=== PATIENT | female | born 1975 | race Hispanic/Latino ===

== ENCOUNTER 2017-08-15 20:44 | Emergency (ER) | payer MEDICAID ==
[2017-08-15 21:30] LABS: BASOPHILS % (AUTO) 0.8 % (0.0-5.0); EOSINOPHILS % (AUTO) 1.4 % (0.0-8.0); HEMATOCRIT 35.2 % (36-48); LYMPHOCYTES % (AUTO) 16.5 % (21.0-51.0); MEAN CORPUSCULAR HEMOGLOBIN 27.9 pg (27.0-33.0); MONOCYTES % (AUTO) 6.2 % (3.0-13.0); NEUTROPHILS % (AUTO) 75.1 % (40.0-77.0); PLATELET COUNT (AUTO) 372 K/uL (130-400); RED CELL DISTRIBUTION WIDTH 15.7 % (11.0-15.5); WHITE BLOOD COUNT (AUTO) 6.4 K/uL (4.8-10.8)
[2017-08-15 21:41] LABS: CREATININE 0.7 mg/dL (0.5-1.5)
[2017-08-15 21:50] LABS: ALBUMIN 3.3 g/dL (3.5-5.0); BILIRUBIN,TOTAL 0.4 mg/dL (0.2-1.0); TOTAL PROTEIN, SERUM 7.8 g/dL (6.0-8.3)
[2017-08-15 21:56] LABS: APPEARANCE,URINE Clear (CLEAR); BILIRUBIN,URINE Negative (NEGATIVE); COLOR,URINE Yellow (YELLOW); GLUCOSE, URINE (UA) Negative (NEGATIVE); KETONES,URINE Negative (NEGATIVE); LEUKOCYTE ESTERASE ,URINE Negative (NEGATIVE); NITRATE,URINE Negative (NEGATIVE); OCCULT BLOOD,URINE Negative (NEGATIVE); PROTEIN,URINE Negative (NEGATIVE); UROBILINOGEN,URINE 0.2 mg/dL (0.2-1.0)
[2017-08-15 22:04] LABS: AMPHET/METH SCREEN,URINE NEGATIVE (NEGATIVE); BARBITURATE SCREEN, URINE NEGATIVE (NEGATIVE); BENZODIAZEPINES SCREEN,URINE NEGATIVE (NEGATIVE); CANNABINOID SCREEN,URINE NEGATIVE (NEGATIVE); COCAINE SCREEN,URINE NEGATIVE (NEGATIVE); OPIATE SCREEN,URINE POSITIVE (NEGATIVE); PHENCYCLIDINE SCREEN,URINE NEGATIVE (NEGATIVE)
[2017-08-15] MEDS ORDERED: ACETAMINOPHEN 325 MG TAB ONE (22:14)
[2017-08-15] MEDS ORDERED: FAMOTIDINE/PF 20 MG/2 ML VIAL IV ONE (22:19)
[2017-08-15] MEDS ORDERED: DiphenhydrAMINE HCL 50 MG/ML VIAL ONE (22:19)
[2017-08-15] MEDS ORDERED: LIDOCAINE HCL 2% VISCOUS 15 ML UDCUP ONE (23:53)
[2017-08-15] MEDS ORDERED: MAG HYDROX/AL HYDROX/SIMETH ES 30 ML SUSP UDCUP ONE (23:54)
== END 2017-08-16 01:09 | disposition home or self-care (01) ==
LOC: EDH 20:44
DX: K29.71 Gastritis, unspecified, with bleeding (principal); R51 Headache; I10 Essential (primary) hypertension; Z98.51 Tubal ligation status
CPT/HCPCS: 36415; 74176; 80053; 80305; 81003; 81025; 82150; 82270; 83690; 85025; 86677; 87804 ×2; 93005; 96374; 96375; 99285; J1200; J3490

== ENCOUNTER 2017-12-28 13:50 | Emergency (ER) | payer MEDICAID, OTHER ==
[2017-12-28] MEDS ORDERED: METHYLPREDNISOLONE SOD SUCC 125MG/2ML VIAL ONE (14:33)
[2017-12-28 14:37] LABS: APPEARANCE,URINE Clear (CLEAR); BILIRUBIN,URINE Negative (NEGATIVE); COLOR,URINE Dark Yellow (YELLOW); GLUCOSE, URINE (UA) Negative (NEGATIVE); KETONES,URINE Trace mg/dL (NEGATIVE); LEUKOCYTE ESTERASE ,URINE Negative (NEGATIVE); NITRATE,URINE Negative (NEGATIVE); OCCULT BLOOD,URINE Negative (NEGATIVE); PROTEIN,URINE POS 1+ (NEGATIVE)
[2017-12-28 14:38] LABS: HCG,QUAL RESULT NEGATIVE (NEGATIVE)
[2017-12-28 14:38] LABS: BASOPHILS % (AUTO) 0.8 % (0.0-5.0); EOSINOPHILS % (AUTO) 2.9 % (0.0-8.0); HEMATOCRIT 36.1 % (36-48); LYMPHOCYTES % (AUTO) 11.2 % (21.0-51.0); MEAN CORPUSCULAR HEMOGLOBIN 26.6 pg (27.0-33.0); MEAN CORPUSCULAR HGB CONC 33.6 g/dL (32.0-36.0); MEAN CORPUSCULAR VOLUME 79.1 fL (79-99); MONOCYTES % (AUTO) 7.8 % (3.0-13.0); NEUTROPHILS % (AUTO) 77.3 % (40.0-77.0); NUCLEATED RED BLOOD CELLS 0.1 % (0.0-0.19); PLATELET COUNT (AUTO) 397 K/uL (130-400); RED BLOOD CELL COUNT(AUTO) 4.57 MIL/uL (4.00-5.50); RED CELL DISTRIBUTION WIDTH 16.1 % (11.0-15.5); WHITE BLOOD COUNT (AUTO) 7.1 K/uL (4.8-10.8)
[2017-12-28] MEDS ORDERED: IPRATROPIUM/ALBUTEROL SULFATE 3 ML SOLUTION IH ONE (14:38)
[2017-12-28 14:52] LABS: CREATININE 0.7 mg/dL (0.5-1.5); POTASSIUM 3.8 mmol/L (3.5-5.1)
[2017-12-28 14:56] LABS: ALBUMIN 3.1 g/dL (3.5-5.0); BILIRUBIN,DIRECT 0.1 mg/dL (0.0-0.3); BILIRUBIN,TOTAL 0.5 mg/dL (0.2-1.0)
[2017-12-28 15:14] LABS: BACTERIA,URINE Few /HPF (None Seen); RBC,URINE 0-1 /HPF (0-1)
[2017-12-28 15:15] LABS: MUCUS,URINE Few LPF (None Seen); SQUAMOUS EPITHELIAL CELL,UR Few /HPF (0-2)
== END 2017-12-28 15:43 | disposition home or self-care (01) ==
LOC: EDH 13:50
DX: J16.8 Pneumonia due to other specified infectious organisms (principal); E66.9 Obesity, unspecified; Z68.43 Body mass index [BMI] 50.0-59.9, adult; Z91.013 Allergy to seafood; Z91.018 Allergy to other foods
CPT/HCPCS: 36415; 71046; 80048; 80076; 81001; 81025; 85025; 93005; 94640; 96374; 99285; J2930

== ENCOUNTER 2022-08-15 15:00 | Emergency (ER) | payer OTHER ==
[~2022-08-15] VITALS: Ht 162.6 cm; Wt 153.3 kg
[~2022-08-15 15:00] MED LIST: ACET-2079 PO
[2022-08-15 15:39] LABS: APPEARANCE,URINE CLEAR (CLEAR); BILIRUBIN,URINE NEGATIVE (NEGATIVE); COLOR,URINE YELLOW (YELLOW); GLUCOSE, URINE (UA) NEGATIVE (NEGATIVE); KETONES,URINE NEGATIVE (NEGATIVE); LEUKOCYTE ESTERASE ,URINE TRACE Leu/uL (NEGATIVE); NITRATE,URINE NEGATIVE (NEGATIVE); OCCULT BLOOD,URINE TRACE-LYSED (NEGATIVE); PROTEIN,URINE NEGATIVE (NEGATIVE); UROBILINOGEN,URINE 0.2 mg/dL (0.2-1.0)
[2022-08-15 15:48] LABS: BACTERIA,URINE Rare /HPF (None Seen); WBC,URINE 0-1 /HPF (0-1)
[2022-08-15 15:49] LABS: MUCUS,URINE Rare LPF (None Seen); SQUAMOUS EPITHELIAL CELL,UR Rare /HPF (0-2)
[2022-08-15 15:55] LABS: BASOPHILS % (AUTO) 0.6 % (0.0-5.0); EOSINOPHILS % (AUTO) 0.9 % (0.0-8.0); HEMATOCRIT 33.4 % (36-48); LYMPHOCYTES % (AUTO) 21.5 % (21.0-51.0); MEAN CORPUSCULAR HEMOGLOBIN 25.2 pg (27.0-33.0); MEAN CORPUSCULAR VOLUME 78.6 fL (79-99); MONOCYTES % (AUTO) 6.2 % (3.0-13.0); NEUTROPHILS % (AUTO) 70.5 % (40.0-77.0); PLATELET COUNT (AUTO) 354 K/uL (130-400); RED BLOOD CELL COUNT(AUTO) 4.25 MIL/uL (4.00-5.50); RED CELL DISTRIBUTION WIDTH 16.8 % (11.0-15.5); WHITE BLOOD COUNT (AUTO) 6.5 K/uL (4.8-10.8)
[2022-08-15 16:05] LABS: CREATININE 0.6 mg/dL (0.5-1.5); POTASSIUM 3.4 mmol/L (3.5-5.1)
[2022-08-15 16:10] LABS: ALBUMIN 3.2 g/dL (3.5-5.0); TOTAL PROTEIN, SERUM 7.6 g/dL (6.0-8.3)
[2022-08-15] MEDS ORDERED: LIDOCAINE HCL 2% VISCOUS 15 ML UDCUP PO ONE (18:00)
[2022-08-15] MEDS ORDERED: MAG/ALUM/SIMETH 30 ML UDCUP PO ONE (18:00)
[2022-08-15] MEDS ORDERED: POTASSIUM BICARB/CIT AC 25 MEQ TABLET.EFF PO ONE (18:00)
[2022-08-15] MEDS ORDERED: CEPH500B PO (18:15)
[2022-08-15] MEDS ORDERED: PANT40TA55 PO (18:15)
[2022-08-15 18:25] VITALS: BP 144/79
== END 2022-08-15 18:35 | disposition home or self-care (01) ==
LOC: EDH 15:00
DX: N39.0 Urinary tract infection, site not specified (principal); K21.9 Gastro-esophageal reflux disease without esophagitis; F41.9 Anxiety disorder, unspecified; E11.9 Type 2 diabetes mellitus without complications; E78.00 Pure hypercholesterolemia, unspecified; I10 Essential (primary) hypertension; Z79.1 Long term (current) use of non-steroidal anti-inflammatories (NSAID); Z88.8 Allergy status to other drugs, medicaments and biological substances
CPT/HCPCS: 36415; 71045; 80053; 81001; 83690; 84484; 85025; 93005

== ENCOUNTER 2023-02-06 09:02 | Emergency (ER) | payer OTHER ==
[~2023-02-06] VITALS: Ht 162.6 cm; Wt 152.0 kg
[~2023-02-06 09:02] MED LIST changes: +CEPH500B PO; +PANT40TA55 PO
[2023-02-06 09:51] LABS: BASOPHILS % (AUTO) 0.7 % (0.0-5.0); EOSINOPHILS % (AUTO) 1.1 % (0.0-8.0); HEMATOCRIT 34.9 % (36-48); LYMPHOCYTES % (AUTO) 18.9 % (21.0-51.0); MEAN CORPUSCULAR HEMOGLOBIN 24.3 pg (27.0-33.0); MEAN CORPUSCULAR HGB CONC 31.5 g/dL (32.0-36.0); MONOCYTES % (AUTO) 5.6 % (3.0-13.0); NEUTROPHILS % (AUTO) 73.4 % (40.0-77.0); PLATELET COUNT (AUTO) 410 K/uL (130-400); RED BLOOD CELL COUNT(AUTO) 4.53 MIL/uL (4.00-5.50); RED CELL DISTRIBUTION WIDTH 16.3 % (11.0-15.5); WHITE BLOOD COUNT (AUTO) 7.3 K/uL (4.8-10.8)
[2023-02-06 10:01] LABS: CREATININE 0.6 mg/dL (0.5-1.5)
[2023-02-06 10:06] LABS: ALBUMIN 3.5 g/dL (3.5-5.0); MAGNESIUM 1.5 mg/dL (1.80-2.40); TOTAL PROTEIN, SERUM 8.1 g/dL (6.0-8.3)
[2023-02-06 10:22] LABS: B-TYPE NATRIURETIC PEPTIDE 6 pg/mL (0-100)
[2023-02-06 10:36] LABS: APPEARANCE,URINE CLEAR (CLEAR); BILIRUBIN,URINE NEGATIVE (NEGATIVE); COLOR,URINE LIGHT-YELLOW (YELLOW); GLUCOSE, URINE (UA) NEGATIVE (NEGATIVE); KETONES,URINE NEGATIVE (NEGATIVE); LEUKOCYTE ESTERASE ,URINE NEGATIVE Leu/uL (NEGATIVE); NITRATE,URINE NEGATIVE (NEGATIVE); OCCULT BLOOD,URINE MODERATE (NEGATIVE); PH,URINE 5.5 (5.0-8.0); PROTEIN,URINE NEGATIVE (NEGATIVE); UROBILINOGEN,URINE 0.2 mg/dL (0.2-1.0)
[2023-02-06 10:50] LABS: HCG,QUALITATIVE URINE NEGATIVE (NEGATIVE)
[2023-02-06 11:07] LABS: BACTERIA,URINE MOD /HPF (None Seen); MUCUS,URINE RARE LPF (None Seen); SQUAMOUS EPITHELIAL CELL,UR RARE /HPF (0-2); WBC,URINE 0-1 /HPF (0-1)
[2023-02-06] MEDS ORDERED: HYDR-3421 PO (11:27)
[2023-02-06 11:41] VITALS: BP 149/99
== END 2023-02-06 11:47 | disposition home or self-care (01) ==
LOC: EDH 09:02
DX: M94.0 Chondrocostal junction syndrome [Tietze] (principal); F41.9 Anxiety disorder, unspecified; E11.9 Type 2 diabetes mellitus without complications; E78.00 Pure hypercholesterolemia, unspecified; I10 Essential (primary) hypertension; J45.909 Unspecified asthma, uncomplicated; Z20.822 Contact with and (suspected) exposure to COVID-19
CPT/HCPCS: 99285; 71045; 87635; 83735; 84484; 80053; 83880; 85025; 87804 ×2; 81001; 81025; 36415; 93005; C9803

== ENCOUNTER 2025-01-23 15:51 | Emergency (ER) | payer BC, OTHER ==
[~2025-01-23] VITALS: Ht 162.6 cm; Wt 152.9 kg
[~2025-01-23 15:51] MED LIST changes: +HYDR-3421 PO
[2025-01-23 16:18] LABS: BASOPHILS # (AUTO) 0.03 K/uL (0.00-0.20); BASOPHILS % (AUTO) 0.6 % (0.0-5.0); EOSINOPHILS # (AUTO) 0.08 K/uL (0.00-0.70); EOSINOPHILS % (AUTO) 1.5 % (0.0-8.0); HEMATOCRIT 34.4 % (36-48); IMMATURE GRANULOCYTE ABSOLUTE 0.03 K/uL (0-1); LYMPHOCYTES # (AUTO) 1.2 K/uL (1.0-4.8); MEAN CORPUSCULAR HGB CONC 32.8 g/dL (32.0-36.0); MEAN CORPUSCULAR VOLUME 82.3 fL (79-99); MONOCYTES # (AUTO) 0.4 K/uL (0.1-1.0); MONOCYTES % (AUTO) 7.9 % (3.0-13.0); NEUTROPHILS # (AUTO) 3.4 K/uL (1.8-7.7); NEUTROPHILS % (AUTO) 65.4 % (40.0-77.0); PLATELET COUNT (AUTO) 372 K/uL (130-400); RED BLOOD CELL COUNT(AUTO) 4.18 MIL/uL (4.00-5.50); RED CELL DISTRIBUTION WIDTH 14.9 % (11.0-15.5); WHITE BLOOD COUNT (AUTO) 5.2 K/uL (4.8-10.8)
[2025-01-23 16:26] LABS: CREATININE 0.5 mg/dL (0.5-1.0); POTASSIUM 3.7 mmol/L (3.5-5.1)
[2025-01-23 16:35] LABS: MAGNESIUM 1.3 mg/dL (1.80-2.40)
--- NOTE | 2025-01-23 16:52 | EKG ---
[facility] Test Date: 2025-01-23 Test Time: 16:48:53 Pat Name: JASON GARDNER Department: ED Room: Gender: F Mail Service Coordinator: [id number] : 1975 Requested By: YAMILE TAPIA Order Number: [id number] Reading MD: Liam Park Measurements Intervals [place] Rate: 86 P: 33 CA: 184 QRS: 40 QRSD: 92 T: 49 QT: 372 QTc: 446 Interpretive Statements Sinus rhythm Low voltage, precordial leads Compared to ECG 02/06/2023 09:31:40 Low QRS voltage now present Electronically Signed On 01-24-2025 11:51:25 CDT by Liam Park Please click the below link to view image of tracing.
[2025-01-23 17:33] LABS: APPEARANCE,URINE CLEAR (CLEAR); BILIRUBIN,URINE NEGATIVE (NEGATIVE); COLOR,URINE LIGHT-YELLOW (YELLOW); GLUCOSE, URINE (UA) NEGATIVE (NEGATIVE); KETONES,URINE NEGATIVE (NEGATIVE); LEUKOCYTE ESTERASE ,URINE NEGATIVE Leu/uL (NEGATIVE); NITRATE,URINE NEGATIVE (NEGATIVE); OCCULT BLOOD,URINE SMALL (NEGATIVE); PH,URINE 5.5 (5.0-8.0); PROTEIN,URINE NEGATIVE (NEGATIVE); UROBILINOGEN,URINE 0.2 mg/dL (0.2-1.0)
[2025-01-23 17:34] LABS: ADD UA MICROSCOPIC YES
[2025-01-23 17:37] LABS: MUCUS,URINE RARE LPF (None Seen); RBC,URINE 0-1 /HPF (0-1); SQUAMOUS EPITHELIAL CELL,UR FEW /HPF (0-2)
--- NOTE | 2025-01-23 18:02 | ERN ---
General Chief Complaint: Chest Pain Stated Complaint: CANT TALK HEADACHE Time Seen by MD: 15:52 Source: patient History of Present Illness Initial Comments PATIENT IS A 49-YEAR-OLD FEMALE COMING IN WITH MULTIPLE COMPLAINTS. PER PATIENT SHE HAD AN EPISODE THAT SHE COULD NOT SPEAK AND FELT IF HER RIGHT FACE WAS TINGLING. SHE ALSO STATES THAT SHE HAS A RIGHT ARM TINGLING WELL. SHE STATES HE WAS EVALUATED ANOTHER HOSPITAL FOR SAME REASON IN HIS HERE DUE TO ONGOING SENSATION. UPON EVALUATION IN TRIAGE SHE STATES THAT HER SYMPTOMS HAVE SUBSIDED. Allergies: Coded Allergies: ketorolac (Unverified Allergy, Mild, 07/29/22) C/O DIFFICULTY SWALLOWING WITHOUT NOTABLE SWELLING OR DISTRESS. No Known Drug Allergies (Unverified Allergy, Unknown, 07/29/22) Home Meds Active Scripts Hydroxyzine HCl (Hydroxyzine HCl) 25 Mg Tablet, 25 MG PO TID for 3 Days, #9 TAB Prov:GIL NUNES V METAL HANGING SUPERVISOR 02/06/23 Pantoprazole Sodium (Protonix) 40 Mg Ectab, 40 MG PO DAILY for 30 Days, #30 TAB.EC Prov:YAMILE TAPIA MD 08/15/22 Cephalexin Monohydrate (Keflex) 500 Mg Cap, 500 MG PO TID for 7 Days, #21 CAP Prov:YAMILE TAPIA MD 08/15/22 Acetaminophen with Codeine (Acetaminophen-Cod #3 Tablet) 1 Each Tablet, 1-2 TAB PO Q6H PRN for SEVERE PAIN (7-10), #12 TAB 0 Refills Prov:DEVI ALLEN MD 07/29/22 Past Medical History Past Medical History: Anxiety, Arthritis, Asthma, Bipolar, Depression, Diabetes-Type II, High Cholesterol, Hypertension Medical History Other: PTSD Past Surgical History: Other Surgical History Other: RT KNEE SURGERY, "TUBES TIED" Social History Social History: Negative, Lives with family, Other Female( History) LMP: December 21, 2024 ROS Dictation CONSTITUTIONAL: NO CHILLS, NO FEVER, NO WEAKNESS, NO DIAPHORESIS, NO MALAISE. HEAD/FACE: NO SIGNS OF TRAUMA. EENT: NO EYE PAIN, NO BLURRED VISION, NO TEARING, NO DOUBLE VISION, NO EAR PAIN, NO EAR DISCHARGE, NO NOSE PAIN, NO NASAL CONGESTION, NO THROAT PAIN, NO THROAT SWELLING, NO MOUTH PAIN. RESPIRATORY: NO COUGH, NO ORTHOPNEA, NO SOB, NO STRIDOR, NO WHEEZING. CARDIOVASCULAR: NO CHEST PAIN, NO EDEMA, NO PALPITATIONS, NO SYNCOPE. GASTROINTESTINAL/ABDOMINAL: NO ABDOMINAL PAIN, NO CONSTIPATION, NO DIARRHEA, NO NAUSEA, NO VOMITING. GENITOURINARY: NO ABNORMAL DISCHARGE, NO DYSURIA, NO FREQUENT URINATION, NO HEMATURIA. NO COMPLAINTS OF PAIN IN THE GENITALS. MUSCULOSKELETAL: NO BACK PAIN, NO GOUT, NO JOINT PAIN, NO JOINT SWELLING, NO MUSCLE PAIN, NO MUSCLE STIFFNESS, NO NECK PAIN. INTEGUMENTARY: NO CHANGE IN COLOR, NO CHANGE IN HAIR/NAILS, NO DRYNESS, NO LESION, NO LUMPS, NO RASH. NEUROLOGICAL/PSYCH: NO ANXIETY, NOT DEPRESSED, NO EMOTIONAL PROBLEM, NO HEADACHE, NO NUMBNESS, NO PRE-EXISTING DEFICIT, NO HISTORY OF SEIZURES, NO TREMORS, NO WEAKNESS. HEMATOLOGIC/LYMPHATIC: NOT ANEMIC, NO HISTORY OF BLOOD CLOTS, NO APPARENT BLEEDING, NO BRUISING, GLANDS NOT SWOLLEN. ALL SYSTEMS NEGATIVE, EXCEPT NOTED. Physical Exam Physical Exam Dictation VITAL SIGNS: REVIEWED. GENERAL APPEARANCE: ALERT, ORIENTED X3, NO ACUTE DISTRESS, OBESE. HEAD AND FACE: NON-TRAUMATIC. EYES: PERRL, PINK CONJUNCTIVAS, EYELID NO TRAUMA, ANTERIOR CHAMBER CLEAR. EARS: PINNAS INTACT AND NO SIGNS OF TRAUMA OR ERYTHEMA. EAR CANALS CLEAR AND NO DISCHARGE. TMS NO ERYTHEMA. NOSE: NO DISCHARGE, NO BLEEDING. OROPHARYNX: MOUTH NORMAL, TEETH NO CARIES, TONGUE PINK. PHARYNX CLEAR, NO ERYTHEMA. TONSILS NO EXUDATES, NO ABSCESSES NOTED. MUCOUS MEMBRANE MOIST. NECK: SUPPLE, NON-TENDER, NO THYROMEGALY, NO MASSES, NO JVD, NO BRUITS. BREAST: DEFERRED. CHEST: NO TENDERNESS, NO CREPITUS, NO PARADOXICAL MOVEMENT, NO RETRACTIONS. LUNGS: CLEAR, WELL-VENTILATED, SYMMETRIC, NO RALES, NO WHEEZING, NO RHONCHI, NO STRIDOR, GOOD BREATH SOUNDS BILATERALLY. HEART: REGULAR RATE, REGULAR RHYTHM, NO MURMUR, NO GALLOPS. VASCULAR: NO PERIPHERAL EDEMA. ABDOMEN: SOFT, POSITIVE BOWEL SOUNDS, NONDISTENDED, NO GUARDING, NONTENDER, NO REBOUND, NO MASSES NO HEPATOMEGALY, NO SPLENOMEGALY, NO HART'S SIGN, NO HERNIA S. RECTAL: DEFERRED. GENITAL: DEFERRED. NEUROLOGICAL: NORMAL SPEECH, GROSS MOTOR FUNCTION INTACT, GROSS SENSORY FUNCTION INTACT. MUSCULOSKELETAL: NECK NONTENDER, FULL RANGE OF MOTION, BACK NONTENDER, FULL RANGE OF MOTION. EXTREMITIES: NONTENDER, FULL RANGE OF MOTION. SKIN: COLOR PINK, DRY, NO TURGOR, NO RASH, NO LACERATIONS, NO ABRASIONS, NO CONTUSIONS. LYMPHATICS: DEFERRED. Results Laboratory and Microbiology Lab and Micro Result Laboratory Tests Test 01/23/25 16:10 01/23/25 17:12 White Blood Count 5.2 K/uL (4.8-10.8) Red Blood Count 4.18 MIL/uL (4.00-5.50) Hemoglobin 11.3 g/dL (12.0-16.0) L Hematocrit 34.4 % (36-48) L Mean Corpuscular Volume 82.3 fL (79-99) Mean Corpuscular Hemoglobin 27.0 pg (27.0-33.0) Mean Corpuscular Hemoglobin Concent 32.8 g/dL (32.0-36.0) Red Cell Distribution Width 14.9 % (11.0-15.5) Platelet Count 372 K/uL (130-400) Mean Platelet Volume 9.7 fL (7.5-10.5) Immature Granulocyte % (Auto) 0.6 % (0-1) Neutrophils (%) (Auto) 65.4 % (40.0-77.0) Lymphocytes (%) (Auto) 24.0 % (21.0-51.0) Monocytes (%) (Auto) 7.9 % (3.0-13.0) Eosinophils (%) (Auto) 1.5 % (0.0-8.0) Basophils (%) (Auto) 0.6 % (0.0-5.0) Neutrophils # (Auto) 3.4 K/uL (1.8-7.7) Lymphocytes # (Auto) 1.2 K/uL (1.0-4.8) Monocytes # (Auto) 0.4 K/uL (0.1-1.0) Eosinophils # (Auto) 0.08 K/uL (0.00-0.70) Basophils # (Auto) 0.03 K/uL (0.00-0.20) Absolute Immature Granulocyte (auto 0.03 K/uL (0-1) Nucleated Red Blood Cells 0.0 % (0.0-0.19) Sodium Level 135 mmol/L (136-145) L Potassium Level 3.7 mmol/L (3.5-5.1) Chloride Level 98 mmol/L (101-111) L Carbon Dioxide Level 29 mmol/L (21-32) Blood Urea Nitrogen 8 mg/dL (7-18) Creatinine 0.5 mg/dL (0.5-1.0) Glomerular Filtration Rate Calc 114 mL/min (>90) Random Glucose 204 mg/dL (70-105) H Total Calcium 9.3 mg/dL (8.5-10.1) Magnesium Level 1.30 mg/dL (1.80-2.40) L Total Creatine Kinase 30 U/L (21-232) Troponin I High Sensitivity < 4 ng/L (4-50) L Urine Color LIGHT-YELLOW (YELLOW) Urine Appearance CLEAR (CLEAR) Urine pH 5.5 (5.0-8.0) Urine Specific [place] 1.024 (1.001-1.031) Urine Protein NEGATIVE mg/dL (NEGATIVE) Urine Glucose (UA) NEGATIVE mg/dL (NEGATIVE) Urine Ketones NEGATIVE mg/dL (NEGATIVE) Urine Occult Blood SMALL (NEGATIVE) H Urine Nitrate NEGATIVE (NEGATIVE) Urine Bilirubin NEGATIVE mg/dL (NEGATIVE) Urine Urobilinogen 0.2 mg/dL (0.2-1.0) Urine Leukocyte Esterase NEGATIVE Sean/uL Urine RBC 0-1 /HPF (0-1) Urine WBC 2-5 /HPF (0-1) H Urine Squamous Epithelial Cells FEW /HPF (0-2) Urine Bacteria None /HPF (None Seen) Labs Reviewed?: Yes EKG/XRAY/US/CT/MRI EKG Comment 01/23/2025 TIME 4:48 P.M. VENTRICULAR RATE [address] SIN[address] [place] [address] WAVE ELEVATION OR DEPRESSION MDM MDM: DIFFERENTIAL DIAGNOSIS: WEAKNESS, TIA, CHEST PAIN, RATIONALE: TESTS CONSIDERED AND ORDERED SECONDARY TO SHARED DECISION MAKING INCLUDE: PREVIOUS OUTSIDE RECORDS REVIEWED: OLD ER VISITS. RISK OF COMPLICATION AND/OR MORBIDITY OR MORTALITY OF PATIENT MANAGEMENT: NONE MEDICATIONS-PER MEDICATION RECONCILIATION NEED FOR HOSPITALIZATION: PATIENT DOES NOT MEET CRITERIA FOR HOSPITALIZATION. NEED FOR EMERGENCY MAJOR/MINOR SURGERY: NO THERE ARE NO SOCIAL CONCERNS WITH THIS PATIENT. PRESCRIPTION DRUG MANAGEMENT PRESCRIPTIONS WILL INCLUDE SYMPTOMATIC CARE PATIENT'S PRIOR EXTERNAL MEDICAL RECORDS FROM OTHER ER VISITS WERE REVIEWED BY ME INDICATED. PRIOR TESTING AND RESULTS FROM PREVIOUS VISITS WERE REVIEWED. PRIOR TESTS WERE TAKEN INTO ACCOUNT WITH MEDICAL DECISION MAKING AND RESOURCE UTILIZATION, INDEPENDENT HISTORIAN/HISTORIANS WERE USED TO OBTAIN COMPLETE MEDICAL HISTORY. I INDEPENDENTLY INTERPRETED THE TEST THAT WERE PERFORMED, RESULTS WERE REVIEWED BY ME AND CONSIDERED FINDINGS ON RADIOLOGY IF ORDERED. MEDICAL MANAGEMENT AND EXAMINATION INTERPRETATION DISCUSSIONS WERE HAD BY ME WITH OTHER QUALIFIED HEALTHCARE PROFESSIONALS INDICATED FOR THE PATIENT'S CARE. 01/23/20252125 Spoke to tele neurology who evaluated the patient. Dr. ambrocio who I was on the phone with stated that she felt the patient had an inconsistent exam with any functional neurologic issue. Patient at this time apparently has concerns for anxiety/somatization disorder. Neurology's recommended the patient follow up as an outpatient with a an MRI brain. Discussed with the patient who is willing to do this. Advised her if she had any worsening symptoms to come back to the ER was any other issues ED Course Orders Procedure Category Date Status Time Cbc With Differential LAB 01/23/25 Complete 16:02 Chest 1vw RAD 01/23/25 Taken 16:02 12 Lead Ekg Tracing- EKG 01/23/25 Complete Technical 16:02 Lactated Ringers PHA 01/23/25 Complete 1000ml (Lactated 16:30 Magnesium LAB 01/23/25 Complete 16:02 Creatine Kinase, Total LAB 01/23/25 Complete 16:02 Troponin I High LAB 01/23/25 Complete Sensitivity 16:02 Urinalysis Profile LAB 01/23/25 Complete 16:02 Basic Metabolic Panel LAB 01/23/25 Complete 16:02 Magnesium 2gm Premix PHA 01/23/25 In Process 50ml (Magnesium 2gm 18:30 [place] Prov. Neuro CONPHYSVC 01/23/25 Transmitted Consult 19:44 Current Medications Medications (Trade) Dose Ordered Sig/Mikey Route PRN Reason Start Time Stop Time Status Last Admin Dose Admin Lactated Ringer's 1,000 ml @ 0 mls/hr ONCE ONCE IV 01/23/25 16:30 01/23/25 16:31 DC 01/23/25 18:04 Magnesium Sulfate 50 ml @ 0 mls/hr PROTOCOL IV 01/23/25 18:30 02/22/25 18:29 01/23/25 19:18 Vital Signs Date Time Temp Pulse Resp B/P (MAP) Pulse Ox O2 Delivery O2 Flow Rate FiO2 01/23/25 17:20 97.9 86 19 120/72 96 Room Air* 0 21 01/23/25 15:53 98.2 99 16 148/84 96 Room Air 0 DX & DISP Disposition: Discharge Departure Impression: Primary Impression: TIA (transient ischemic attack) Additional Impression: Anxiety Condition: Stable Additional Instructions: Please follow up with your primary care physician/neurologist for continuance of care. Please follow up to get an MRI brain. If you have worsening neurological dysfunction or symptomatology please come back to emergency department. Referrals: CAMILO ESPAÑA PA-C (PCP) YAMILE TAPIA MD Jan 23, 2025 18:02 MELITON BUENO MD Jan 23, 2025 21:29
[2025-01-23] MEDS: LACTATED RINGERS 1000ML 1,000 ML IV ONE (18:04)
[2025-01-23] MEDS: MAGNESIUM 2GM PREMIX 50ML 50 ML IV SCH (19:18)
[2025-01-23 21:29] VITALS: BP 132/89; PULSE 85; RESP 17; TEMP 97.7; O2SAT 97
[2025-01-23] MEDS: acetaMINOPHEN 500 MG TABLET PO ONE (21:40)
--- NOTE | 2025-01-24 01:47 | HMCIMG ---
EXAM: CR Chest, 1 view CLINICAL HISTORY: Chest pain. COMPARISON: None provided. FINDINGS: The lungs show no infiltrates or other acute findings. No pleural effusion or pneumothorax. The cardiomediastinal silhouette is within normal limits. No acute osseous abnormality. IMPRESSION: No acute cardiopulmonary process is evident. /[place]
== END 2025-01-23 21:45 | disposition home or self-care (01) ==
LOC: EDH 15:51
DX: G45.9 Transient cerebral ischemic attack, unspecified (principal); F41.9 Anxiety disorder, unspecified; E11.9 Type 2 diabetes mellitus without complications; E78.00 Pure hypercholesterolemia, unspecified; I10 Essential (primary) hypertension; J45.909 Unspecified asthma, uncomplicated; M19.90 Unspecified osteoarthritis, unspecified site; Z79.899 Other long term (current) drug therapy
CPT/HCPCS: 99284; 96365; 71045; 96366; 82550; 83735; 84484; 80048; 85025; 81001; 36415; 93005; J3475